=== PATIENT | male | born 1995 | race African-American/Black ===

== ENCOUNTER 2023-11-16 07:13 | Emergency (ER) | payer SELFPAY ==
[2023-11-16 07:23] VITALS: BP 141/83; PULSE 82; RESP 16; TEMP 36.7; O2SAT 100
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
[2023-11-16 09:05] VITALS: BP 135/80; PULSE 70; RESP 16; O2SAT 98
== END 2023-11-16 09:05 | disposition home or self-care (01) ==
PROVIDERS: Emergency Provider Emergency Medicine
DX: S39.94XA Unspecified injury of external genitals, initial encounter (principal); X58.XXXA Exposure to other specified factors, initial encounter
CPT/HCPCS: 99281